=== PATIENT | male | born 1940 | race Caucasian/White ===

== ENCOUNTER 2021-03-28 12:38 | Emergency (ER) | payer OTHER ==
[~2021-03-28] VITALS: Ht 198.1 cm; Wt 99.8 kg
[2021-03-28] MEDS ORDERED: NORVASC5 MG PO (12:51)
[2021-03-28] MEDS ORDERED: HUMALOG100 UNIT/1 SUBQ (12:51)
[2021-03-28 13:52] LABS: ABSOLUTE BASOPHILS 0.1 thou/uL (0.0-0.2); ABSOLUTE EOSINOPHILS 0.2 thou/uL (0.0-0.7); ABSOLUTE MONOCYTES 0.6 thou/uL (0.0-1.2); ABSOLUTE NEUTROPHILS 4.2 thou/uL (1.6-8.1); BASOPHILS 0.7 %; EOSINOPHILS 3.2 %; HEMATOCRIT 45.9 % (42.0-52.0); HEMOGLOBIN 15.5 gm/dL (14.0-18.0); LYMPHOCYTES 27.8 %; MCHC 33.7 g/dL (28.0-37.0); MONOCYTES 8.2 %; MPV 8.3 fl. (7.2-11.1); NUCLEATED RBCS 0 /100WBC; PLATELET COUNT* 213 thou/uL (150-400); POLYS 60.1 %; RBC 5.16 mil/uL (4.50-6.00); RDW-CV 12.5 % (10.5-14.5); WBC 7.1 thou/uL (4.0-11.0)
[2021-03-28 14:08] LABS: CREATININE 1.5 mg/dL (0.6-1.3); POTASSIUM 4.2 mmol/L (3.5-5.1)
[2021-03-28 14:18] LABS: ALBUMIN 4.1 g/dL (3.4-5.0); TOTAL BILIRUBIN 0.8 mg/dL (<0.1-1.0); TOTAL PROTEIN 7.7 g/dL (6.4-8.2)
--- NOTE | 2021-03-28 14:39 | EKG ---
[place] [address] ELECTROCARDIOGRAM REPORT Name: MAX LYNN Room: [facility]#: [id number] Admission: 03/28/21 Attend Phys: Discharge: Date of : 44 Date of Service: 03/28/21 1254 Report #: [id number] THIS REPORT FOR: //name// [facility] ED Test Date: 2021-03-28 Test Time: 12:54:56 Pat Name: MAX LYNN Department: Room: Gender: Director Database: [facility] : 1940 Requested By: Simon Orourke Order Number: [id number] MD: Alon Johnson Measurements Intervals [place] Rate: 116 P: 71 MS: 160 QRS: 37 QRSD: 101 T: 32 QT: 328 QTc: 456 Interpretive Statements Sinus tachycardia Probable left atrial enlargement RSR' in V1 or V2, probably normal variant No previous ECG available for comparison Electronically Signed On 03-28-2021 14:39:33 CDT by Alon Johnson [email or web address] <ELECTRONICALLY SIGNED> By: Alon Johnson MD, [facility] 03/28/21 1439 1254 1254 Alon Johnson MD, [facility] /EPI
[2021-03-28 15:41] LABS: URINE BILIRUBIN NEGATIVE (Negative); URINE BLOOD TRACE (Negative); URINE CLARITY CLEAR; URINE COLOR YELLOW; URINE GLUCOSE-RANDOM NEGATIVE (Negative); URINE KETONES 1+ (Negative); URINE LEUKOCYTES-REFLEX NEGATIVE (Negative); URINE NITRITE-REFLEX NEGATIVE (Negative); URINE PROTEIN NEGATIVE (Negative); URINE UROBILINOGEN 0.2 E.U./dl (0.2-1.0)
[2021-03-28 15:47] VITALS: BP 127/70
== END 2021-03-28 15:49 | disposition home or self-care (01) ==
LOC: M.ERS 12:38
PROVIDERS: Family Medicine
DX: I10 Essential (primary) hypertension (principal); R42 Dizziness and giddiness; E11.9 Type 2 diabetes mellitus without complications; G62.9 Polyneuropathy, unspecified; Z79.4 Long term (current) use of insulin; Z79.899 Other long term (current) drug therapy

== ENCOUNTER 2021-06-02 18:35 | Observation (INO) | payer OTHER ==
[~2021-06-02] VITALS: Ht 198.1 cm; Wt 86.7 kg
--- NOTE | ~2021-06-02 | OP ---
[address] [address] OPERATIVE REPORT Name: MAX LYNN Room: [address] M.R.#: [id number] Admission: 06/02/21 Attend Phys: Wilner Elise MD Discharge: Date of : 44 Report #: [id number] THIS REPORT FOR: cc: LIZZETH CARD CHRISTOPHER F DO Haggard, Kent L MD ~ DATE OF SURGERY: 06/03/2021 PREOPERATIVE DIAGNOSES: Bilateral ureteral stones, 4 mm, 2 mm on the left, 3 mm, 5 mm and 8 mm on the right, nonobstructing renal calculi. POSTOPERATIVE DIAGNOSES: Bilateral ureteral stones, 4 mm, 2 mm on the left, 3 mm, 5 mm and 8 mm on the right, nonobstructing renal calculi. PROCEDURES: Cystoscopy, left ureteroscopy with ureteroscopic stone extraction, placement of left ureteral stent, right ureteroscopy with holmium laser lithotripsy of the 5 mm stone and the 8 mm stone, stone extraction and right ureteral stent placement. STAFF SURGEON: Eugene Chaudhary MD MANAGER COUNTRY: None. ANESTHESIA: General. ESTIMATED BLOOD LOSS: None. COMPLICATIONS: None. SPECIMENS: Ureteral stone and ureteral stone fragments. DRAIN: A 28 cm x 4.8-[place]izen [place] right and left ureteral stents. INDICATIONS: The patient is a pleasant 81-year-old white male with long history of kidney stones who began having some abdominal pain on Wednesday evening. By Wednesday morning around 9 a.m., again he had increasing abdominal pain radiating to his right flank and went to [facility] where a CT scan confirmed an 8 mm proximal right ureteral stone with hydronephrosis and a 5 mm and a 3 mm distal right ureteral stones along with a 4 mm and 2 mm distal left ureteral stones. He has pretty significant nonobstructing left renal calculi as well. He was counseled regarding treatment options, elected for definitive cystoscopy, bilateral retrograde pyelograms, bilateral ureteroscopies, possible holmium laser lithotripsy, possible bilateral ureteral stent placement. After the risks and benefits of the procedure explained, [place] [address] OPERATIVE REPORT Name: MAX LYNN Room: [address]#: [id number] Admission: 06/02/21 Attend Phys: Wilner Elise MD Discharge: Date of : 44 Report #: [id number] OPERATIVE PROCEDURE: The patient was taken to the operating room, comfortably placed in the dorsal lithotomy position under adequate general anesthesia. He was sterilely prepped and draped in standard fashion exposing only the genitalia. He received antibiotic therapy as prescribed. Appropriate timeout was carried out and all were in agreement. The fluoroscopic machine was not functioning, so I was unable to shoot retrograde pyelograms and simply placed a 0.035 Glidewire gently up to the left ureter and the cystoscope was then removed and a 4.5-[place] tapered to a 6.5-[place] Estrada semi-rigid ureteroscope advanced through the urethra up to the left ureter gently and identified the 2 stones in the distal ureter corresponding to a stone seen on CT scan. A 2.4-[place] flat wire basket was used to remove the 4 mm stone, gently intact. I was able to grab the 4 mm and 2 mm all in one setting. Repeat ureteroscopy was carried out back to the urethra up to the left ureter, gently placed up to the iliac vessels, did not see any other stone fragments. Over the guidewire, a 28 cm x 4.8-[place] ureteral stent was put in place and had a good coil in the bladder. Attention was then turned to the right side, 0.035 Glidewire was advanced up to the right ureter to the level of the kidney and the cystoscope was removed and a 4.5-[place] tapered to a 6.5-[place] Estrada semi-rigid ureteroscope advanced through the urethra up to the right ureter, below the iliac vessels and I encountered the 5 mm stone, 272 micron holmium laser fiber set at 6.4 barrera began to fragment the stone into multiple fragments, used a 2.4 [place] flat wire basket to just remove the fragments from the right ureter, including the 3 mm stone more proximally. Repeat ureteroscopy was carried out all the way up to the 8 mm proximal stone, but again it was cannulated. The angle was not ideal. The 272 micron holmium laser fiber set at 6.4 barrera, began to fragment stone and began to migrate. A 1.9-[place] nitinol basket was used to grab the basket stone and slowly bring it down into the lower ureter below the iliac vessels, now just simply opened the basket and used the laser fiber, passed it beside the basket through the ureteroscope and then lasered the stone inside the basket in the distal ureter. This was able to cleft in a smaller fragment, easily removed without difficulty. Repeat ureteroscopy was then carried out. After multiple passes taken out the small fragments gently removing without difficulty. Repeat ureteroscopy verified. No irregularities of the mucosa. No damage to the ureter. No significant fragments remained. The similar rigid scope was removed. Cystoscope was backloaded over the wire and a 28 cm x 4.8-[place] ureteral stent was put in place, had good coil in the bladder. At this time, we had the x-ray machine working, so I witnessed a very good coil in the right kidney. There was kind of a corkscrew appearance on the left, cystoscope was put back in and grasped the distal left ureter, pulled it down, so there was noted to be an excellent coil in the left renal pelvis as well. The bladder was drained. Cystoscope was removed. Confirmatory x-ray was taken, showed good position of the stent. He was extubated in the operating room, [facility] with assistance and went to recovery in stable [place] [address] OPERATIVE REPORT Name: MAX LYNN [address]#: [id number] Admission: 06/02/21 Attend Phys: Wilner Elise MD Discharge: Date of : 44 Report #: [id number] him back next week in our office for cystoscopy and bilateral ureteral stent removal. By: 1201 1320Eugene Chaudhary MD /nt
[~2021-06-02 18:35] MED LIST: HUMALOG100 UNIT/1 SUBQ; NORVASC5 MG PO
[2021-06-02 18:48] VITALS: BP 166/99
[2021-06-02] MEDS ORDERED: MAGNESIUM CITR100 MG PO (18:53)
[2021-06-02] MEDS ORDERED: TOPROL XL50 MG PO (18:54)
[2021-06-02] MEDS ORDERED: FENOFIBRATE150 MG PO (18:54)
[2021-06-02 19:57] LABS: URINE BILIRUBIN NEGATIVE (Negative); URINE BLOOD 3+ (Negative); URINE CLARITY SL CLOUDY; URINE COLOR YELLOW; URINE GLUCOSE-RANDOM 1+ (Negative); URINE KETONES TRACE (Negative); URINE LEUKOCYTES-REFLEX TRACE (Negative); URINE NITRITE-REFLEX NEGATIVE (Negative); URINE PROTEIN 2+ (Negative); URINE SPECIFIC GRAVITY 1.025 (1.005-1.030); URINE UROBILINOGEN 0.2 E.U./dl (0.2-1.0)
[2021-06-02 20:02] LABS: ABSOLUTE EOSINOPHILS 0.1 thou/uL (0.0-0.7); ABSOLUTE LYMPHOCYTES 1.4 thou/uL (0.8-5.3); ABSOLUTE MONOCYTES 0.8 thou/uL (0.0-1.2); ABSOLUTE NEUTROPHILS 7.7 thou/uL (1.6-8.1); BASOPHILS 0.4 %; EOSINOPHILS 1.2 %; HEMATOCRIT 43.4 % (42.0-52.0); HEMOGLOBIN 14.8 gm/dL (14.0-18.0); LYMPHOCYTES 13.6 %; MCH 30.6 pg (26.0-34.0); MCHC 34.1 g/dL (28.0-37.0); MCV 89.5 fL (80.0-100.0); MONOCYTES 7.8 %; MPV 8.6 fl. (7.2-11.1); NUCLEATED RBCS 0 /100WBC; PLATELET COUNT* 215 thou/uL (150-400); RBC 4.85 mil/uL (4.50-6.00); RDW-CV 13.9 % (10.5-14.5)
[2021-06-02 20:10] LABS: CREATININE 1.9 mg/dL (0.6-1.3); POTASSIUM 4.4 mmol/L (3.5-5.1)
[2021-06-02 20:19] LABS: BACTERIA-REFLEX 1-9 Few /HPF (None Seen); CASTS None Seen /LPF (None Seen); CRYSTALS None Seen /LPF (None Seen); SQUAMOUS 4-10 Moderate /LPF (0-3); URINE RBC >20 Many /HPF (0-2); URINE WBC-REFLEX 0-5 Rare /HPF (0-5)
[2021-06-02 20:25] LABS: ALBUMIN 4.1 g/dL (3.4-5.0); CK-MB MASS 1.1 ng/mL (<0.5-3.6); TOTAL BILIRUBIN 0.6 mg/dL (<0.1-1.0); TOTAL PROTEIN 7.9 g/dL (6.4-8.2)
[2021-06-02 23:42] VITALS: BP 125/95
[2021-06-02 23:53] VITALS: BP 180/92
[2021-06-03] MEDS ORDERED: PERCOCET 5-3251 EACH PO (01:27)
[2021-06-03] MEDS ORDERED: VITAMIN D3 PO (01:30)
--- NOTE | 2021-06-03 01:33 | NUR ---
ALERT AND ORIENTED X 4 MALE PATIENT TO ROOM 313 BY WC FROM ER IN STABLE CONDITION. ADMISSION ROUTINES IN PROGRESS. NO PAIN ON ARRIVAL. NPO AT MIDNIGHT. WAS PROVIDED WITH BOX LUNCH PRIOR TO CUT OFF TIME. CONTINUE TO MONITOR.
--- NOTE | 2021-06-03 04:32 | NUR ---
PATIENT HAS REMAINED ALERT AND ORIENTED X 4. RESTING QUIETLY ON HOURLY ROUNDS. HAS DENIED PAIN OR NAUSEA OF THIS WRITING SINCE COMING TO FLOOR FROM ER AT 2349. IVF'S INITIATED. NPO AT MIDNIGHT FOR UROLOGY EVALUATIN THIS MORNING. CONTINUE TO MONITOR.
[2021-06-03 08:00] VITALS: BP 119/69
--- NOTE | 2021-06-03 09:07 | EKG ---
[place] [address] ELECTROCARDIOGRAM REPORT Name: MAX LYNN Room: [address]#: [id number] Admission: 06/02/21 Attend Phys: Wilner Elise, Discharge: Date of : 44 Date of Service: 06/02/211953 Report #: [id number] THIS REPORT FOR: //name// [facility] ED Test Date: 2021-06-02 Test Time: 19:54:24 Pat Name: MAX LYNN Department: Room: [facility] Gender: M Sander Wooden Pencils: ARSEN : 1940 Requested By: Demetrio Medrano Order Number: [id number] MD: Milo Gore Measurements Intervals [place] Rate: 83 P: 55 ME: 169 QRS: 19 QRSD: 107 T: 55 QT: 381 QTc: 448 Interpretive Statements Sinus rhythm Ventricular premature complex Compared to ECG 03/28/2021 12:54:56 Ventricular premature complex(es) now present Sinus tachycardia no longer present Electronically Signed On 06-03-2021 9:07:13 CDT by Milo Gore [email or web address] <ELECTRONICALLY SIGNED> By: Milo Gore MD, FACC 06/03/21906 53 53 Milo Gore MD, FACC /EPI
[2021-06-03 10:09] LABS: ABSOLUTE EOSINOPHILS 0.3 thou/uL (0.0-0.7); ABSOLUTE LYMPHOCYTES 1.9 thou/uL (0.8-5.3); ABSOLUTE MONOCYTES 0.6 thou/uL (0.0-1.2); ABSOLUTE NEUTROPHILS 3.4 thou/uL (1.6-8.1); BASOPHILS 0.7 %; CALCIUM 8.7 mg/dL (8.5-10.1); CREATININE 1.6 mg/dL (0.6-1.3); EOSINOPHILS 4.9 %; HEMATOCRIT 40.1 % (42.0-52.0); HEMOGLOBIN 13.4 gm/dL (14.0-18.0); LYMPHOCYTES 30.5 %; MCH 30.4 pg (26.0-34.0); MCHC 33.3 g/dL (28.0-37.0); MCV 91.1 fL (80.0-100.0); MONOCYTES 9.1 %; NUCLEATED RBCS 0 /100WBC; PLATELET COUNT* 199 thou/uL (150-400); POLYS 54.8 %; POTASSIUM 4.8 mmol/L (3.5-5.1); RDW-CV 13.9 % (10.5-14.5); WBC 6.1 thou/uL (4.0-11.0)
--- NOTE | 2021-06-03 16:08 | NUR ---
Case Management Assessment Pt presented as alert and oriented x4. Pt reported he lives alone in a single story condo and does not require assistance. Pt denied history of ADL or DME support. Pt denied history of HH or SNF care. Pt reported past rehab services after a surgery on his rotator cuff. CM to continue to follow for discharge planning.
[2021-06-03 16:12] VITALS: BP 119/69
[2021-06-03 16:28] VITALS: BP 131/75
--- NOTE | 2021-06-03 17:21 | NUR ---
PATIENT DISCHARGED TO HOME. DISCHARGE PAPERS REVIEWED AND SIGNED. PRESCRIPTIONS AND INFORMATION SHEETS GIVEN. IV REMOVED. PATIENT DENIES ANY FURTHER NEEDS. PATIENT TAKEN BY WHEELCHAIR TO EXIT. LEFT WITH DAUGHTER.
[2021-06-03 17:23] VITALS: BP 119/69
--- NOTE | 2021-06-06 19:07 | PATH ---
[address] [address] PATHOLOGY RPT PROCEDURE Name: MAX LYNN Room: [address] Inna Joseph#: [id number] Admission: 06/02/21 Date of : 44 Discharge: 06/03/21 Report #: [id number] Path Case #: [id number] [facility] Accession Number: [id number] . 01 Material submitted: . ureter - URETERAL STONES . 01 Clinical history: . CYST W/ URETEROSCOPY, STONE MANIPULATION, STENT BILATERAL URETERAL CALCULI. IMPAIRED RENAL FUNCTION . 02 Diagnosis: Ureteral Calculi: - Consistent with Calculi. - The specimen is sent out for further processing. Report pending outside analysis with results to follow in an addendum. LBQ 06/04/2021 1220 Local . 02 Addendum: . Outside report received from [facility], [address] [place] [address], [address], on case [id number], labeled with their number [id number], dated 06/06/2021. . Stone Analysis Report . Stone Composition Composition (percent) Calcium Oxalate Monohydrate 73 Calcium Oxalate Dihydrate 24 Calcium Phosphate Carbonate 3 TOTAL: 100 . . The stone is submitted in fragmented form with no discernible core. It is brown, medellin, and cream in color, weighs approximately 140 milligrams and displaces less than 0.1 cc of distilled water. THE CALCULUS IS COMPOSED OF A MIXTURE OF CALCIUM OXALATE MONOHYDRATE (WHEWELLITE), CALCIUM OXALATE DIHYDRATE (WEDDELITE) AND CALCIUM PHOSPHATE CARBONATE (CARBONATE-APATITE). . . . . Angelo Howe MD Lockstitcher . . . A complete copy of the report is on [place] [address] PATHOLOGY RPT PROCEDURE Name: MAX LYNN [address]: [address]#: [id number] Admission: 06/02/21 Date of : 44 Discharge: 06/03/21 Report #: [id number] Path Case #: [id number] Technical and Professional services for the special studies performed by [employer], [address] [place] [address]. . (MLK:anh; 06/06/2021) . . QMS/06/06/2021 Addendum Electronically Signed by Kristan Sanders MD, Pathologist . 02 Electronically signed: . Yayo Ledezma MD, Pathologist NPI- [id number] . 01 Gross description: . The specimen is received in a minute amount of saline, labeled "[place], Max, ureteral stones". It consists of multiple dark medellin-yellow calculi ranging from 0.3 x 0.2 x 0.2 cm to 0.5 x 0.3 x 0.2 cm. The specimen is forwarded to sendouts for further processing.([facility]; 06/04/2021) [facility] 06/04/2021 1217 Local . 02 Pathologist provided ICD-10: N20.1 . 02 CPT . 828348 Specimen Comment: A courtesy copy of this report has been sent to [phone], [phone]- Specimen Comment: [phone], Specimen Comment: Report sent to ,DR CARD AND DR KHANNA Performed at: [address], [place] [id number] MD Jayden Jacinto MD Phone: [phone] Performed at: 02 [facility] [address], [place], [place] [address] MD Yayo Ledezma MD Phone: [phone]
== END 2021-06-03 17:20 | disposition home or self-care (01) ==
LOC: M.ERS 18:35 → M.3W 23:13 → M.TBA-ER 23:13 → M.3W 23:49
PROVIDERS: Internal Medicine; Nurse Practitioner Family; Nurse Practitioner Psychiatric/Mental Health; ADMIT Internal Medicine; ATTEND Internal Medicine
DX: N13.2 Hydronephrosis with renal and ureteral calculous obstruction (principal); N13.9 Obstructive and reflux uropathy, unspecified; I71.4 Abdominal aortic aneurysm, without rupture; N17.9 Acute kidney failure, unspecified; I10 Essential (primary) hypertension; E11.40 Type 2 diabetes mellitus with diabetic neuropathy, unspecified; Z23 Encounter for immunization; Z79.4 Long term (current) use of insulin; Z79.899 Other long term (current) drug therapy

== ENCOUNTER 2021-06-04 01:38 | Emergency (ER) | payer OTHER ==
[~2021-06-04] VITALS: Ht 198.1 cm; Wt 87.2 kg
[~2021-06-04 01:38] MED LIST changes: +FENOFIBRATE150 MG PO; +MAGNESIUM CITR100 MG PO; +PERCOCET 5-3251 EACH PO; +TOPROL XL50 MG PO; +VITAMIN D3 PO
[2021-06-04 02:25] LABS: ABSOLUTE LYMPHOCYTES 1.5 thou/uL (0.8-5.3); ABSOLUTE MONOCYTES 0.6 thou/uL (0.0-1.2); BASOPHILS 0.3 %; HEMATOCRIT 42.8 % (42.0-52.0); HEMOGLOBIN 14.1 gm/dL (14.0-18.0); LYMPHOCYTES 13.3 %; MCHC 32.9 g/dL (28.0-37.0); MCV 91.1 fL (80.0-100.0); MONOCYTES 5.4 %; MPV 9.2 fl. (7.2-11.1); NUCLEATED RBCS 0 /100WBC; PLATELET COUNT* 250 thou/uL (150-400); RDW-CV 14.3 % (10.5-14.5); WBC 11.1 thou/uL (4.0-11.0)
[2021-06-04 02:26] LABS: URINE BILIRUBIN NEGATIVE (Negative); URINE BLOOD 3+ (Negative); URINE CLARITY SL CLOUDY; URINE COLOR DARK YELLOW; URINE GLUCOSE-RANDOM 2+ (Negative); URINE KETONES NEGATIVE (Negative); URINE LEUKOCYTES-REFLEX TRACE (Negative); URINE PROTEIN 2+ (Negative)
[2021-06-04 02:28] LABS: CALCIUM 9.5 mg/dL (8.5-10.1); CREATININE 2.3 mg/dL (0.6-1.3); POTASSIUM 4.6 mmol/L (3.5-5.1)
[2021-06-04 02:29] LABS: URINE NITRITE-REFLEX POSITIVE (Negative)
[2021-06-04 02:32] LABS: TOTAL BILIRUBIN 0.5 mg/dL (<0.1-1.0)
[2021-06-04 03:08] LABS: SQUAMOUS NONE SEEN /LPF (0-3)
[2021-06-04 03:09] LABS: CASTS None Seen /LPF (None Seen)
[2021-06-04 03:10] LABS: URINE RBC >20 Many /HPF (0-2); URINE WBC-REFLEX 0-5 Rare /HPF (0-5)
[2021-06-04 03:11] LABS: BACTERIA-REFLEX 1-9 Few /HPF (None Seen); CRYSTALS None Seen /LPF (None Seen)
[2021-06-04 04:36] VITALS: BP 128/72
== END 2021-06-04 04:36 | disposition home or self-care (01) ==
LOC: M.ERS 01:38
PROVIDERS: Personal Emergency Response Attendant
DX: N99.89 Other postprocedural complications and disorders of genitourinary system (principal); R33.8 Other retention of urine; E11.40 Type 2 diabetes mellitus with diabetic neuropathy, unspecified; I10 Essential (primary) hypertension; Z87.442 Personal history of urinary calculi; Z79.899 Other long term (current) drug therapy; Z79.4 Long term (current) use of insulin